=== PATIENT | female | born 1980 | race American Indian/Alaskan Native ===

== ENCOUNTER 2020-01-29 07:37 | Day surgery (SDC) | payer OTHER ==
[~2020-01-29 07:37] MED LIST: ceFAZolin/STERILE WATER 2 GM/20 ML SYRINGE IV NR
[2020-01-29] MEDS ORDERED: BACTERIOSTATIC SODIUM CHLORIDE 0.9% 30 ML VIAL INFILTRATI ONE (08:00)
[2020-01-29] MEDS ORDERED: LACTATED RINGERS 1,000 ML IV SCH (08:00)
[2020-01-29] MEDS ORDERED: HYDROmorphone 1 MG/1 ML INJ IV PRN (08:11)
[2020-01-29] MEDS ORDERED: ONDANSETRON 4 MG/2 ML INJ IV PRN (08:11)
--- NOTE | 2020-01-29 08:11 | Anesthesia Day of Surgery ---
Anesthesia Day of Surgery - Day of Surgery Patient Examined: Yes Patient H&P Reviewed: Yes Patient is NPO: Yes
--- NOTE | 2020-01-29 08:11 | Anesthesia Consultation ---
Anesthesia Consult and Med Hx Date of service: 01/29/20 - Airway Anesthetic Teeth Evaluation: Good ROM Head & Neck: Adequate Mental/Hyoid Distance: Adequate Mallampati Class: Class II Intubation Access Assessment: Good - Pre-Operative Health Status ASA Pre-Surgery Classification: ASA2 Proposed Anesthetic Plan: General - Pulmonary Hx Smoking: Yes (STOPPED X 1 YR) Hx Sleep Apnea: No (BENJAMIN PRE SCREEN LOW RISK.) - Central Nervous System Hx Psychiatric Problems: No - Hematic Hx Anemia: No - Other Systems Hx Cancer: No Hx Obesity: Yes - Additional Comments Anesthesia Medical History Comments: Sensitive to opioids
[2020-01-29] MEDS ORDERED: dexAMETHasone 20 MG/5 ML VIAL ONE (09:00)
[2020-01-29] MEDS ORDERED: MIDAZOLAM 2 MG/2 ML INJ IV NR (09:00)
[2020-01-29] MEDS ORDERED: ONDANSETRON 4 MG/2 ML INJ ONE ×2 (09:04→09:05)
[2020-01-29] MEDS ORDERED: LIDOCAINE MPF (2%) 20 MG/1 ML VIAL 5 ML ONE (09:05)
[2020-01-29] MEDS ORDERED: propofoL 200 MG/20 ML VIAL IV ONE (09:05)
[2020-01-29] MEDS ORDERED: KETAMINE/STERILE WATER 50 MG/ML SYRINGE ONE (09:05)
[2020-01-29] MEDS ORDERED: MIDAZOLAM 2 MG/2 ML INJ ONE (09:33)
[2020-01-29] MEDS: HYDROmorphone 1 MG/1 ML INJ IV PRN ×2 (10:37→10:46)
--- NOTE | 2020-01-29 10:41 | Post Operative Note ---
Date of procedure: 01/29/20 Pre-op diagnosis: renal stone Post-op diagnosis: same Findings: as above Procedure: l litho Anesthesia: GETA Surgeon: JORGE ALBERTO GRIER Estimated blood loss: none Pathology: none Condition: stable Disposition: PACU
--- NOTE | 2020-01-29 10:42 | Discharge Summary ---
Short Stay Discharge Plan Activity: other (no straining ) Weight Bearing Status: Full Weight Bearing Diet: low fat, low cholesterol, low salt Special Instructions: other (inc fluids ) Follow up with: PRIMARY CARE, [Primary Care Provider] - 7 Days MYLES MCKEE MD [Staff Physician] - 7 Days
--- NOTE | 2020-01-29 10:50 | Post Anesthesia Evaluation ---
- Post Anesthesia Evaluation Patient Participated: Yes Airway Patent: Yes Stable Respiratory Function: Yes Nausea/Vomiting: No Temp > 96.8F: Yes Pain Manageable: Yes Adequeate Hydration: Yes Anesthesia Complications: No Block Receding Appropriately: Not Applicable Patient on Ventilator: No
[2020-01-29 11:12] VITALS: BP 166/98
--- NOTE | 2020-01-29 11:44 | Operative Report ---
PREOPERATIVE DIAGNOSIS: Renal stone, left. POSTOPERATIVE DIAGNOSES: Renal stone, left. PROCEDURE: In situ left lithotripsy. SURGEON: Dr. Hurtado. ANESTHESIA: General. FINDINGS: This is a woman with a prominent left renal stone. She now presents for treatment. All risks and implications discussed. DESCRIPTION OF PROCEDURE: The patient was brought to lithotripsy, placed on the table. Following the induction of anesthesia, the stone was easily located. It was approximately 1 cm. Shocks were begun at 1 kV. A renal pause was carried out. After the renal pause, we went up to 8 kV just for a little bit, the stone fragmented and spread out, we could barely see it. The patient tolerated the procedure well. We lowered it down to about 5 kV for the last 400 shocks. 2500 shocks were given. Tolerated the procedure well and brought to recovery in stable condition. JOB# [id number] EDNA/BERNARD
== END 2020-01-29 11:59 | disposition home or self-care (01) ==
LOC: OR 07:37
PROVIDERS: ATTEND Urology
DX: N20.0 Calculus of kidney (principal); E66.9 Obesity, unspecified; Z79.899 Other long term (current) drug therapy; Z87.891 Personal history of nicotine dependence; Z98.49 Cataract extraction status, unspecified eye; Z98.890 Other specified postprocedural states; Z68.35 Body mass index [BMI] 35.0-35.9, adult
CPT/HCPCS: 50590; 81025; J0690; J1100; J1170; J2250; J2405; J2704; J3490; J7120